=== PATIENT | male | born 1990 | race Two or more races ===

== ENCOUNTER 2021-10-05 10:02 | Emergency (ER) | payer SELFPAY ==
[~2021-10-05] VITALS: Ht 185.4 cm; Wt 74.8 kg
--- NOTE | 2021-10-05 10:21 | NUR ---
To ER bed 13, bibwife, "hearing voices" smoked weed 2 days ago, denies SI/HI, shaking, aaox3, breathing even and non labored, connected to monitor, awaiting md [email or web address]
--- NOTE | 2021-10-05 10:35 | NUR ---
PSYCH CLINICIAN PAGED.
[2021-10-05] MEDS ORDERED: OLANZAPINE 5 MG TABLET PO ONE (11:00)
--- NOTE | 2021-10-05 11:05 | NUR ---
PT DINESES SI/ HI PT HEARING VOICESES
[2021-10-05 11:11] LABS: BASOPHILS % (AUTO) 0.7 % (0.0-2.0); EOSINOPHILS % (AUTO) 0.4 % (0.0-6.0); HEMATOCRIT 43 % (39-51); HEMOGLOBIN 14.3 g/dL (13.5-17.5); LYMPHOCYTES # (AUTO) 0.6 K/uL (0.8-4.8); LYMPHOCYTES % (AUTO) 13.1 % (20.0-44.0); MEAN CORPUSCULAR HGB CONC 34 g/dl (31.0-36.0); MEAN CORPUSCULAR VOLUME 100 fL (80-96); MONOCYTES # (AUTO) 0.4 K/uL (0.1-1.30); MONOCYTES % (AUTO) 9.3 % (2.0-12.0); NEUTROPHILS # (AUTO) 3.5 K/uL (1.8-8.9); NEUTROPHILS % (AUTO) 76.5 % (43.0-81.0); PLATELET COUNT (AUTO) 170 K/uL (150-450); RED BLOOD CELL COUNT(AUTO) 4.25 MIL/uL (4.5-6.0); WHITE BLOOD COUNT (AUTO) 4.6 K/uL (4.3-11.0)
[2021-10-05 11:16] LABS: BILIRUBIN,URINE SMALL (NEGATIVE); COLOR,URINE YELLOW (YELLOW); LEUKOCYTE ESTERASE ,URINE NEGATIVE (NEGATIVE); NITRITE, URINE NEGATIVE (NEGATIVE); PROTEIN,URINE TRACE mg/dl (NEGATIVE); UGLUCOSE NEGATIVE (NEGATIVE); UROBILINOGEN,URINE 0.2 EU/dL (0.2)
[2021-10-05 11:17] LABS: CALCIUM, SERUM 8.9 mg/dL (8.5-10.1); CARBON DIOXIDE 25 mmol/L (21-32); CHLORIDE 102 mmol/L (98-107); CREATININE 0.6 mg/dL (0.6-1.3); GLUCOSE 93 mg/dL (74-106); POTASSIUM 3.6 mmol/L (3.5-5.1); SODIUM SERUM 138 mmol/L (136-145); UREA NITROGEN, BLOOD 7 mg/dL (7-18)
[2021-10-05 11:23] LABS: ALANINE AMINOTRANSFERASE 40 U/L (12-78); ALBUMIN 4.4 g/dL (3.4-5.0); ALCOHOL, BLOOD < 3 mg/dL (0-0); ALKALINE PHOSPHATASE 54 U/L (46-116); ASPARTATE AMINOTRANSFERASE 31 U/L (15-37); BILIRUBIN,DIRECT 0.4 mg/dL (0.0-0.2); BILIRUBIN,TOTAL 1.5 mg/dL (0.2-1.0); TOTAL PROTEIN, SERUM 8.1 g/dL (6.4-8.2)
[2021-10-05 11:26] LABS: ACETAMINOPHEN 0 ug/ml (10-30)
[2021-10-05 11:35] LABS: BACTERIA,URINE None seen /HPF (None Seen); RBC,URINE 0-2 /HPF (0-2)
[2021-10-05] MEDS ORDERED: OLANZAPINE 5 MG TABLET ONE (11:49)
--- NOTE | 2021-10-05 12:15 | NUR ---
COVID SWAB DONE AND SENT TO LAB
--- NOTE | 2021-10-05 13:00 | NUR ---
SEEN BY S. WORKER FOR EVALUATION SPOOK WITH PT AND
[2021-10-05] MEDS ORDERED: OLAN10TA3 PO (13:38)
--- NOTE | 2021-10-05 13:45 | NUR ---
D/C INSTRACTION GIVEN TO AND PT FULLY AND VERBLIZED UNDERSTOOD D/C HOME WAKING WITH STADY GAIT
[2021-10-05 13:51] VITALS: BP 151/94
== END 2021-10-05 13:52 | disposition home or self-care (01) ==
LOC: ER 10:07
DX: F20.9 Schizophrenia, unspecified (principal); F31.9 Bipolar disorder, unspecified; F22 Delusional disorders; Z20.822 Contact with and (suspected) exposure to COVID-19; Z79.899 Other long term (current) drug therapy
CPT/HCPCS: 99284; 85025; 80048; 80076; 81001; 36415; 87426; 80143; 80320; 80307; C9803; G0480